=== PATIENT | female | born 1980 | race Caucasian/White ===

== ENCOUNTER 2018-06-12 16:20 | Emergency (ER) | payer OTHER ==
[~2018-06-12] VITALS: Ht 167.6 cm; Wt 74.8 kg
[2018-06-12] MEDS ORDERED: AUBAGIO14 MG PO (16:47)
[2018-06-12] MEDS ORDERED: [UNRECOGNIZED DRUG - REMARK] (16:47)
[2018-06-12] MEDS ORDERED: PENICILLIN V P500 MG PO (17:45)
[2018-06-12] MEDS ORDERED: ONDANSETRON HCL4 M2 PO (17:45)
[2018-06-12] MEDS ORDERED: TRAMADOL 50 MG50 MG PO (17:45)
[2018-06-12] MEDS ORDERED: MECLIZINE HCL25 MG PO (17:45)
[2018-06-12 17:59] VITALS: BP 102/60
== END 2018-06-12 18:00 | disposition home or self-care (01) ==
LOC: M.ERS 16:20
DX: K08.89 Other specified disorders of teeth and supporting structures (principal); Z76.0 Encounter for issue of repeat prescription; R42 Dizziness and giddiness; F17.210 Nicotine dependence, cigarettes, uncomplicated; Z88.8 Allergy status to other drugs, medicaments and biological substances

== ENCOUNTER 2018-09-01 12:07 | Emergency (ER) | payer OTHER ==
[~2018-09-01] VITALS: Ht 170.2 cm; Wt 81.7 kg
[~2018-09-01 12:07] MED LIST: AUBAGIO14 MG PO; MECLIZINE HCL25 MG PO; ONDANSETRON HCL4 M2 PO; PENICILLIN V P500 MG PO; TRAMADOL 50 MG50 MG PO; [UNRECOGNIZED DRUG - REMARK]
[2018-09-01] MEDS ORDERED: MEDROLDOSEPACK PO (13:42)
[2018-09-01] MEDS ORDERED: IBU600 MG PO (13:42)
[2018-09-01] MEDS ORDERED: ROBAXIN 750 MG750 MG PO (13:42)
[2018-09-01 13:59] VITALS: BP 102/54
== END 2018-09-01 14:02 | disposition home or self-care (01) ==
LOC: M.ERS 12:07
DX: M54.2 Cervicalgia (principal); G89.29 Other chronic pain; F17.200 Nicotine dependence, unspecified, uncomplicated; M48.00 Spinal stenosis, site unspecified; Z88.8 Allergy status to other drugs, medicaments and biological substances

== ENCOUNTER 2018-11-22 19:40 | Emergency (ER) | payer OTHER ==
[~2018-11-22] VITALS: Ht 170.2 cm; Wt 78.5 kg
[~2018-11-22 19:40] MED LIST changes: +IBU600 MG PO; +MEDROLDOSEPACK PO; +ROBAXIN 750 MG750 MG PO
[2018-11-22 20:33] LABS: ABSOLUTE BASOPHILS 0.1 thou/uL (0.0-0.2); ABSOLUTE EOSINOPHILS 0.3 thou/uL (0.0-0.7); ABSOLUTE LYMPHOCYTES 2.7 thou/uL (0.8-5.3); ABSOLUTE MONOCYTES 0.7 thou/uL (0.0-1.2); BASOPHILS 0.8 %; EOSINOPHILS 4.3 %; HEMATOCRIT 38.5 % (37.0-47.0); HEMOGLOBIN 12.8 gm/dL (12.0-15.0); LYMPHOCYTES 34.2 %; MCH 29.4 pg (26.0-34.0); MCHC 33.3 g/dL (28.0-37.0); MCV 88.2 fL (80.0-100.0); MPV 9.8 fl. (7.2-11.1); NUCLEATED RBCS 0 /100WBC; PLATELET COUNT* 239 thou/uL (150-400); POLYS 51.7 %; RBC 4.36 mil/uL (4.20-5.00); RDW-CV 12.9 % (10.5-14.5); WBC 7.8 thou/uL (4.0-11.0)
[2018-11-22 20:41] LABS: ALBUMIN 3.5 g/dL (3.4-5.0); CALCIUM 8.6 mg/dL (8.5-10.1); CREATININE 0.9 mg/dL (0.6-1.3); POTASSIUM 3.6 mmol/L (3.5-5.1); TOTAL BILIRUBIN 0.2 mg/dL (<0.1-1.0); TOTAL PROTEIN 7.3 g/dL (6.4-8.2)
[2018-11-22 21:36] LABS: ESR (SEDRATE) 15 mm/hr (0-20)
[2018-11-22] MEDS ORDERED: MEDROLDOSEPACK PO (22:11)
[2018-11-22] MEDS ORDERED: TRAMADOL 50 MG50 MG PO (22:11)
[2018-11-22] MEDS ORDERED: ZANAFLEX4 MG PO (22:11)
[2018-11-22] MEDS ORDERED: PREDNISONE 10 M10 MG PO (22:13)
[2018-11-22] MEDS ORDERED: FLEXERIL PO (22:23)
[2018-11-22] MEDS ORDERED: IBUPROFEN 800800 M1 PO (22:23)
[2018-11-22 22:30] VITALS: BP 117/54
== END 2018-11-22 22:30 | disposition home or self-care (01) ==
LOC: M.ERS 19:40
PROVIDERS: Nurse Practitioner Family
DX: R53.1 Weakness (principal); G89.29 Other chronic pain; M48.00 Spinal stenosis, site unspecified; Z88.8 Allergy status to other drugs, medicaments and biological substances